=== PATIENT | female | born 1995 | race Caucasian/White ===

== ENCOUNTER 2016-11-09 01:17 | Emergency (ER) | payer OTHER ==
[~2016-11-09 01:17] MED LIST: AMOXICILLIN500 M1 PO; BACTRIM DS TABL1 TA1 PO; CLARITHROMYCIN500 MG PO; FERRO-TIME325 MG PO; FLAGYL PO; FLEXERIL10 MG PO; IRON1 TA1 PO; LEXAPRO20 MG PO; NAPROSYN500 MG PO; NO MEDICATIONS; PREDNISONE PO; PRILOSEC PO; VOLTAREN50 MG PO; VOLTAREN75 MG PO; ZOFRAN ODT4 MG PO; ZOFRANODT PO
[2016-11-09 01:31] LABS: URINE SOURCE CLEAN CATCH
[2016-11-09 01:33] LABS: URINE APPEARANCE CLEAR; URINE BILIRUBIN NEG (NEG); URINE BLOOD 1+ (NEG); URINE COLOR YELLOW; URINE GLUCOSE NEG (NORM); URINE KETONE NEG (NEG); URINE LEUKOCYTE ESTERASE NEG (NEG); URINE NITRATE NEG (NEG); URINE PH 5.5 (5-8); URINE PROTEIN NEG (NEG); URINE SPECIFIC GRAVITY >=1.030 (1.003-1.035); URINE UROBILINOGEN 0.2 MG/DL (NORM)
[2016-11-09 01:34] LABS: MICRO INDICATED? YES; URINE WBC 0-2 /[HPF] (0-5)
[2016-11-09 01:35] LABS: CULTURE INDICATED? NO; URINE BACTERIA NEG (NEG); URINE MUCUS PRESENT; URINE SQUAMOUS EPITHELIAL CELL MODERATE /[HPF]
[2016-12-11] MEDS ORDERED: LEXAPRO PO (22:58)
[2016-12-11] MEDS ORDERED: IRON45 MG PO (22:58)
[2016-12-11] MEDS ORDERED: MULTI VITAMIN1 EACH PO (22:58)
== END 2016-11-09 02:08 | disposition home or self-care (01) ==
LOC: SED 01:17
PROVIDERS: Physician Assistant
DX: R31.9 Hematuria, unspecified (principal); R19.2 Visible peristalsis; D64.9 Anemia, unspecified; Z90.49 Acquired absence of other specified parts of digestive tract; Z88.8 Allergy status to other drugs, medicaments and biological substances
CPT/HCPCS: 81003; 84703; 99283

== ENCOUNTER 2016-12-11 23:21 | Emergency (ER) | payer OTHER ==
--- NOTE | ~2016-12-11 | CR181 ---
[facility] A Service of [facility] & [facility] RADIOLOGY TEXT RESULTS PATIENT: JOSEPH ECHEVERRIA LOCATION: SED : [birth year] UNIT #: [id number] AGE: [address]: Piper Mckenzie SEX: F ORDER DR: [id number] [place] [id number] E MR#: [id number] Acc #: [id number] NAME: JOSEPH ECHEVERRIA : 1995 SEX: F STUDY DATE/TIME: 12/11/2016 23:51 UNIT: SED ROOM: STUDY DESCRIPTION: CR Lumbar Spine 2 or 3 Views Attending Physician: Piper Mckenzie P.A.-C. Ordering Physician: Piper Mckenzie P.A.-C. Primary Care Physician: Olesya Dang M.D. MEDICAL IMAGING REPORT This report is preliminary unless electronic signature is present. EXAM Lumbar spine series, 12/11/2016 HISTORY 21-year-old female in the ED complaining of 1-day history of low back pain after bending and lifting. TECHNIQUE Three-view lumbar spine series. FINDINGS No acute or chronic fracture deformity or other osseous lesion. Lumbar disc spaces and lumbar vertebral alignment are within normal limits. IMPRESSION Negative lumbar spine series. Dictated by... Ramiro Samano M.D. THIS IS AN ELECTRONICALLY VERIFIED REPORT Ramiro Samano M.D. at 12/12/2016 4:06 AM MIHAI/denny TD: 12/12/2016 02:45 JOB #: [id number] MEDICAL IMAGING REPORT Page 1 of 1
[~2016-12-11 23:21] MED LIST changes: +IRON45 MG PO; +LEXAPRO PO; +MULTI VITAMIN1 EACH PO
[2016-12-11 23:36] LABS: URINE SOURCE CLEAN CATCH
[2016-12-11 23:38] LABS: URINE APPEARANCE SL CLOUDY; URINE BILIRUBIN NEG (NEG); URINE BLOOD 2+ (NEG); URINE COLOR YELLOW; URINE GLUCOSE NEG (NORM); URINE KETONE NEG (NEG); URINE LEUKOCYTE ESTERASE 1+ (NEG); URINE NITRATE NEG (NEG); URINE PROTEIN NEG (NEG); URINE SPECIFIC GRAVITY >=1.030 (1.003-1.035); URINE UROBILINOGEN 0.2 MG/DL (NORM)
[2016-12-11 23:39] LABS: MICRO INDICATED? YES
[2016-12-11 23:55] LABS: CULTURE INDICATED? YES; URINE AMORPHOUS SEDIMENT AMORP URATES; URINE BACTERIA 2+ (NEG); URINE MUCUS PRESENT; URINE RBC 100-200 /[HPF] (0-2); URINE SQUAMOUS EPITHELIAL CELL FEW /[HPF]; URINE WBC INNUM /[HPF] (0-5)
[2016-12-12] MEDS ORDERED: FLEXERIL10 MG PO (00:20)
[2016-12-12] MEDS ORDERED: CIPRO XR 500 M500 MG PO (00:21)
[2016-12-12] MEDS ORDERED: NAPROXEN375 MG PO (00:21)
== END 2016-12-12 00:21 | disposition home or self-care (01) ==
LOC: SED 23:21
PROVIDERS: Physician Assistant
DX: N30.00 Acute cystitis without hematuria (principal); F32.9 Major depressive disorder, single episode, unspecified; F41.0 Panic disorder [episodic paroxysmal anxiety]; Z90.49 Acquired absence of other specified parts of digestive tract; Z88.8 Allergy status to other drugs, medicaments and biological substances; Z79.899 Other long term (current) drug therapy
CPT/HCPCS: 72100; 81003; 84703; 87086; 96372; 99283; J0696; J1885

== ENCOUNTER 2016-12-14 13:11 | Emergency (ER) | payer OTHER ==
[~2016-12-14 13:11] MED LIST changes: +CIPRO XR 500 M500 MG PO; +NAPROXEN375 MG PO
[2016-12-14 13:46] LABS: URINE SOURCE CLEAN CATCH
[2016-12-14 13:54] LABS: URINE BILIRUBIN NEG (NEG); URINE BLOOD TRACE (NEG); URINE COLOR YELLOW; URINE GLUCOSE NEG (NEG); URINE KETONE NEG (NEG); URINE LEUKOCYTE ESTERASE 3+ (NEG); URINE NITRATE NEG (NEG); URINE PROTEIN NEG (NEG); URINE SPECIFIC GRAVITY 1.022 (1.003-1.035); URINE UROBILINOGEN 0.2 MG/DL (NEG)
[2016-12-14 13:55] LABS: CULTURE INDICATED? YES; URBCS1 AUWI 0-2 /[HPF] (0-2); URINE BACTERIA AUWI NEG (NEGATIVE); URINE SQUAMOUS EPITHELIAL CELL MOD /[HPF]; UWBCS1 AUWI 25-50 (0-5)
[2016-12-17 20:02] LABS: CHLAMYDIA TRACH Not Detected (Not Detected); N GONOR Not Detected (Not Detected)
== END 2016-12-14 15:34 | disposition home or self-care (01) ==
LOC: CFTX 13:11
PROVIDERS: Nurse Practitioner
DX: N39.0 Urinary tract infection, site not specified (principal); Z90.49 Acquired absence of other specified parts of digestive tract; Z79.02 Long term (current) use of antithrombotics/antiplatelets; Z79.899 Other long term (current) drug therapy; Z88.8 Allergy status to other drugs, medicaments and biological substances
CPT/HCPCS: 81003; 84703; 87086; 87491; 87591; 87808; 87905; 99284

== ENCOUNTER 2017-02-04 18:52 | Emergency (ER) | payer OTHER ==
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
== END 2017-02-04 23:23 | disposition home or self-care (01) ==
LOC: CFTX 18:52 → CED 18:52 → CFTX 21:45
DX: S93.401A Sprain of unspecified ligament of right ankle, initial encounter (principal); S33.5XXA Sprain of ligaments of lumbar spine, initial encounter; S23.3XXA Sprain of ligaments of thoracic spine, initial encounter; S70.01XA Contusion of right hip, initial encounter; S90.31XA Contusion of right foot, initial encounter; D64.9 Anemia, unspecified; F41.9 Anxiety disorder, unspecified; Z88.8 Allergy status to other drugs, medicaments and biological substances; V43.62XA Car passenger injured in collision with other type car in traffic accident, initial encounter
CPT/HCPCS: 29540; 72072; 72100; 73502; 73590; 73610; 73630; 84703; 99284